=== PATIENT | male | born 1950 | race Caucasian/White ===

== ENCOUNTER 2018-05-29 11:46 | Inpatient (IN) | payer MEDICARE ==
[2018-05-29 12:19] LABS: % BASOPHILS 1.5 % (0.0-2.0); % EOSINOPHILS 4.9 % (0.0-5.0); % LYMPHOCYTES 22.4 % (20.0-50.0); % MONOCYTES 6.5 % (2.0-10.0); % NEUTROPHILS 64.7 % (40.0-80.0); BASOPHILE ABSOLUTE 0.2 Th/cumm (0-0.2); EOSINOPHILE ABSOLUTE 0.5 Th/cmm (0.1-0.4); HEMATOCRIT 30.6 % (41.0-60); HEMOGLOBIN 10.1 gm/dL (12-16); LYMPHOCYTE ABSOLUTE 2.4 Th/cmm (1.5-3.0); MEAN CORPUSCULAR HEMOGLOBIN 28.7 pg (27.0-31.0); MEAN PLATELET VOLUME 7.3 fl; MONOCYTE ABSOLUTE 0.7 Th/cmm (0.3-1.0); NEUTROPHILE ABSOLUTE 6.8 Th/cmm (1.8-8.0); PLATELET COUNT 299 Th/cmm (150-400); RED BLOOD COUNT 3.51 Mil/cmm (3.80-5.80); RED CELL DISTRIBUTION WIDTH 16.3 % (11.5-20.0); WHITE BLOOD COUNT 10.6 Th/cmm (4.8-10.8)
[2018-05-29 12:31] LABS: ALB/GLOB RATIO 0.8 (1.0-1.8); ALBUMIN 3.1 gm/dL (4.2-5.5); ANION GAP 12.7 (7.0-16.0); BILIRUBIN,TOTAL 0.4 mg/dL (0.3-1.0); CALCIUM SERUM 8.9 mg/dL (8.6-10.3); CARBON DIOXIDE 23.9 mEq/L (21.0-31.0); CREATININE - SERUM 1.8 mg/dL (0.7-1.3); GFR AFRICAN-AMERICAN 48.9 ml/min (>90); GFR NON AFRICAN-AMERICAN 40.4 ml/min; MAGNESIUM 1.5 mg/dL (1.9-2.7); PHOSPHOROUS 2.4 mg/dL (2.5-5.0); POTASSIUM SERUM 3.6 mEq/L (3.5-5.1); TOTAL PROTEIN,SERUM 7.1 gm/dL (6.0-8.3)
[2018-05-29 13:57] LABS: AMPHETAMINE URINE NEGATIVE (NEGATIVE); BARBITURATES URINE NEGATIVE (NEGATIVE); BENZODIAZEPINES QUAL URINE NEGATIVE (NEGATIVE); CANNABINOID THC NEGATIVE (NEGATIVE); COCAINE METABOLITE QUAL URINE NEGATIVE (NEGATIVE); METHADONE URINE NEGATIVE (NEGATIVE); METHAMPHETAMINES QUAL URINE NEGATIVE (NEGATIVE); OPIATES (MORPHINE) QUAL. URINE NEGATIVE (NEGATIVE); PHENCYCLIDINE (PCP) URINE NEGATIVE (NEGATIVE); TRICYCLICS (TCA) QUAL. URINE NEGATIVE (NEGATIVE)
[2018-05-29 13:59] LABS: URINE SOURCE CLEAN C
[2018-05-29 14:01] LABS: URINE BILIRUBIN NEGATIVE (NEGATIVE); URINE BLOOD LARGE (NEGATIVE); URINE GLUCOSE (UA) 500 mg/dL (NEGATIVE); URINE KETONE TRACE mg/dL (NEGATIVE); URINE LEUKOCYTE ESTERASE NEGATIVE (NEGATIVE); URINE MICROSCOPIC INDICATED? YES; URINE NITRATE NEGATIVE (NEGATIVE); URINE PH 6.5 (4.6 - 8.0); URINE PROTEIN >=300 mg/dL (NEGATIVE); URINE UROBILINOGEN 0.2 E.U./dL (0.2 - 1.0)
[2018-05-29 14:13] LABS: URINE CLARITY HAZY (CLEAR); URINE COLOR YELLOW
[2018-05-29 14:17] LABS: URINE BACTERIA 1+ /hpf (NONE SEEN); URINE COARSE GRANULAR CAST 0-2 /lpf (NONE SEEN); URINE EPITHELIAL CELLS FEW /lpf (FEW)
[2018-05-29 15:08] LABS: INR 1.08 (0.5-1.4); PROTHROMBIN TIME (TEST) 11.2 SECONDS (9.5-11.5)
--- NOTE | 2018-05-29 16:19 | ED Physician Chart ---
ED Chief Complaint/HPI - Patient Information Date Seen:: 05/29/18 Time Seen:: 12:01 Chief Complaint:: 5150, agitation History of Present Illness:: 5150, agitation. Patient was placed on 5150 by the center he came from for danger to others. 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 I obtained medical records from [facility] which did not indicate that he had had any brain imaging performed for staging purposes prior to Whipple. Therefore, I ordered a brain CT scan to rule out mets. Also, patient has hematuria (kidneys are in the retroperitoneum) and not in the zone of a Whipple. Therefore, I ordered an abdominal/pelvic CT scan. Both of these scans had to be performed without contrast due to his elevated creatinine of 1.8 and GFR of 40. geothermal field technician called and asked the radiologist precision farming specialist about this. Allergies:: Allergies Allergy/AdvReac Type Severity Reaction Status Date / Time No Known Allergies Allergy Verified 05/29/18 12:01 Vitals:: Vital Signs - 8 hr 05/29/18 12:01 Temp 98.5 F HR 83 RR 16 BP 165/81 O2 Sat % 100 Historian:: Patient, Family Member Review:: Nurse's Note Reviewed, Transfer documents Reviewed ED Review of Systems - Review of Systems General/Constitutional: No fever, No chills, Weight loss, No weakness, No diaphoresis, No edema, No loss of appetite Skin: No skin lesions, No rash, No bruising Head: No headache, No light-headedness Eyes: No loss of vision, No pain, No diplopia ENT: No earache, No nasal drainage, No sore throat, No tinnitus Neck: No neck pain, No swelling, No thyromegaly, No stiffness, No mass noted Cardio Vascular: No chest pain, No palpitations, No PND, No orthopnea, No edema Pulmonary: No SOB, No cough, No sputum, No wheezing GI: No nausea, No vomiting, No diarrhea, No pain, No melena, No hematochezia, No constipation, No hematemesis G/U: No dysuria, No frequency, No hematuria Musculoskeletal: No bone or joint pain, No back pain, No muscle pain Endocrine: No polyuria, No polydipsia Psychiatric: Other (increased agitation; danger to others: placed on a 5150) Hematopoietic: No bruising, No lymphadenopathy Allergic/Immuno: No urticaria, No angioedema Neurological: No syncope, No focal symptoms, No weakness, No paresthesia, No headache, No seizure, No dizziness, No confusion, No vertigo ED Past Medical History - Past Medical History Obtainable: No Past Medical History: Other (pancreatic cancer s/p Whipple in 04/2018. ) Social History: Other (h/o methamphetamine use) Family Medical History - Family Member Mother History Unknown: Yes ED Physical Exam - Physical Examination General/Constitutional: Awake, Alert, No distress, Non-toxic appearing, Ambulatory Other Gen/Cons comments:: skin folds from great weight loss. pale appearing. Head: Atraumatic Eyes: Lids, conjuctiva normal, PERRL, EOMI Skin: Nl inspection, No rash, No skin lesions, No ecchymosis, Well hydrated, No lymphadenopathy Other Skin comments:: pale ENMT: External ears, nose nl Neck: Nontender, No nuchal rigidity, No stridor Respiratory: Nl effort/Exclusion, Clear to Auscultation, No Wheeze/Rhonchi/Rales Cardio Vascular: RRR, No murmur, gallop, rubs, NL S1 S2 GI: No tenderness/rebounding/guarding, No organomegaly, No hernia, Normal BS's, Nondistended, No mass/bruits Other GI comments:: steri strips in place. Chevron incision well healed. : No CVA tenderness Extremities: No tenderness or effusion, Full ROM, normal strength in all extremities, No edema, Normal digits & nails Neuro/Psych: Alert/oriented, Normal sensory exam, Normal motor strength, Judgement/insight normal, Mood normal, Normal gait, No focal deficits Misc: Normal back, No paraspinal tenderness ED Labs/Radiology/EKG Results - Lab Results Results: Laboratory Tests 05/29/18 05/29/18 05/29/18 12:08 12:08 12:08 WBC 10.6 RBC 3.51 L Hgb 10.1 L Hct 30.6 L MCV 87.0 MCH 28.7 MCHC Differential 33.0 RDW 16.3 Plt Count 299 MPV 7.3 Neutrophils % 64.7 Lymphocytes % 22.4 Monocytes % 6.5 Eosinophils % 4.9 Basophils % 1.5 ESR PT INR PTT (Actin FS) Sodium 134 L Potassium 3.6 Chloride 101 Carbon Dioxide 23.9 Anion Gap 12.7 BUN 23 Creatinine 1.8 H Est GFR ( Amer) 48.9 Est GFR (Non-Af Amer) 40.4 BUN/Creatinine Ratio 12.8 Glucose 210 H POC Glucose Calcium 8.9 Phosphorus 2.4 L Magnesium 1.5 L Total Bilirubin 0.4 AST 15 ALT 10 Alkaline Phosphatase 158 H Total Protein 7.1 Albumin 3.1 L Globulin 4.0 Albumin/Globulin Ratio 0.8 L Amylase 79 Lipase 39 TSH 3.21 Urine Source Urine Color Urine Clarity Urine pH Ur Specific [place] Urine Protein Urine Glucose (UA) Urine Ketones Urine Blood Urine Nitrate Urine Bilirubin Urine Urobilinogen Ur Leukocyte Esterase Urine RBC Urine WBC Ur Epithelial Cells Urine Bacteria Coarse Granular Casts Urine Opiates Screen Urine Methadone Screen Ur Barbiturates Screen Ur Tricyclics Screen Ur Phencyclidine Scrn Amphetamines Screen U Methamphetamines Scrn U Benzodiazepines Scrn U Cocaine Metab Screen U Cannabinoids Screen 05/29/18 05/29/18 05/29/18 12:08 12:09 13:10 WBC RBC Hgb Hct MCV MCH MCHC Differential RDW Plt Count MPV Neutrophils % Lymphocytes % Monocytes % Eosinophils % Basophils % ESR 86 H PT INR PTT (Actin FS) Sodium Potassium Chloride Carbon Dioxide Anion Gap BUN Creatinine Est GFR ( Amer) Est GFR (Non-Af Amer) BUN/Creatinine Ratio Glucose POC Glucose 206 H Calcium Phosphorus Magnesium Total Bilirubin AST ALT Alkaline Phosphatase Total Protein Albumin Globulin Albumin/Globulin Ratio Amylase Lipase TSH Urine Source CLEAN C Urine Color YELLOW Urine Clarity HAZY Urine pH 6.5 Ur Specific [place] 1.025 Urine Protein >=300 Urine Glucose (UA) 500 H Urine Ketones TRACE Urine Blood LARGE H Urine Nitrate NEGATIVE Urine Bilirubin NEGATIVE Urine Urobilinogen 0.2 Ur Leukocyte Esterase NEGATIVE Urine RBC 10-25 H Urine WBC 2-5 Ur Epithelial Cells FEW Urine Bacteria 1+ H Coarse Granular Casts 0-2 H Urine Opiates Screen Urine Methadone Screen Ur Barbiturates Screen Ur Tricyclics Screen Ur Phencyclidine Scrn Amphetamines Screen U Methamphetamines Scrn U Benzodiazepines Scrn U Cocaine Metab Screen U Cannabinoids Screen 12/07/18 12/07/18 12/07/18 13:10 13:58 14:50 WBC RBC Hgb Hct MCV MCH MCHC Differential RDW Plt Count MPV Neutrophils % Lymphocytes % Monocytes % Eosinophils % Basophils % ESR PT 11.2 INR 1.08 PTT (Actin FS) 25.7 L Sodium Potassium Chloride Carbon Dioxide Anion Gap BUN Creatinine Est GFR ( Amer) Est GFR (Non-Af Amer) BUN/Creatinine Ratio Glucose POC Glucose 194 H Calcium Phosphorus Magnesium Total Bilirubin AST ALT Alkaline Phosphatase Total Protein Albumin Globulin Albumin/Globulin Ratio Amylase Lipase TSH Urine Source Urine Color Urine Clarity Urine pH Ur Specific Collison Urine Protein Urine Glucose (UA) Urine Ketones Urine Blood Urine Nitrate Urine Bilirubin Urine Urobilinogen Ur Leukocyte Esterase Urine RBC Urine WBC Ur Epithelial Cells Urine Bacteria Coarse Granular Casts Urine Opiates Screen NEGATIVE Urine Methadone Screen NEGATIVE Ur Barbiturates Screen NEGATIVE Ur Tricyclics Screen NEGATIVE Ur Phencyclidine Scrn NEGATIVE Amphetamines Screen NEGATIVE U Methamphetamines Scrn NEGATIVE U Benzodiazepines Scrn NEGATIVE U Cocaine Metab Screen NEGATIVE U Cannabinoids Screen NEGATIVE ED Assessment - Assessment General Assessment: still waiting for medical records from [facility] I obtained medical records from [facility] which did not indicate that he had had any brain imaging performed for staging purposes prior to Whipple. Therefore, I ordered a brain CT scan to rule out mets. Also, patient has hematuria (kidneys are in the retroperitoneum) and not in the zone of a Whipple. Therefore, I ordered an abdominal/pelvic CT scan. Both of these scans had to be performed without contrast due to his elevated creatinine of 1.8 and GFR of 40. geothermal field technician called and asked the radiologist precision farming specialist about this. Full set of medical records from [facility] given to patient. presented case to Dr. Berkowitz (who is the medical record technician for Geropsych admit ). CT scan of brain without contrast: no mets or edema from mets noted. CT scan of abdomen/pelvis: fullness in pancreatic head; dilation of common bile duct and pancreatic ducts. ED Septic Shock - . Is Septic Shock (SBP<90, OR Lactate>4 mmol\L) present?: No - <6hrs of presentation: Vital Signs: Vital Signs - 8 hr 05/29/18 12:01 Temp 98.5 F HR 83 RR 16 BP 165/81 O2 Sat % 100 ED Reassessment (Disposition) - Reassessment Reassessment Condition:: Unchanged - Diagnosis Diagnosis:: Increased agitation, on 5150 metastatic pancreatic cancer (unknown if brain mets are present) anemia weight loss hematuria low phosphorous low magnesium - Patient Disposition Discharge/Transfer:: Acute Care w/in this hosp Admitted to:: Med/Surg Condition at Disposition:: Stable, Unchanged
[2018-05-29] MEDS ORDERED: Lactated Ringer 1,000 ML IV ONE (17:27)
[2018-05-29] MEDS ORDERED: Non-Formulary Item 1 EA (Ondansetron Hcl [Zofran*] 4 MG) PO PRN (22:24)
[2018-05-29] MEDS ORDERED: Ipratropium Neb 0.5 mg/2.5 mL UD HHN PRN (22:24)
[2018-05-29] MEDS ORDERED: Non-Formulary Item 1 EA (Acetaminophen [8 Hour] 650 MG) PO PRN (22:24)
[2018-05-29] MEDS ORDERED: Fleet Enema 135 mL RC PRN (22:24)
[2018-05-29] MEDS ORDERED: Non-Formulary Item 1 EA (Glucagon,Human Recombinant [Glucagon Emergency Kit] 1 MG) IJ PRN (22:24)
[2018-05-29] MEDS ORDERED: Magnesium Hydroxide (MOM) 30 mL UDC PO PRN (22:24)
[2018-05-29] MEDS ORDERED: Albuterol Nebulizer 2.5mg/3mL HHN PRN (22:24)
[2018-05-29] MEDS ORDERED: Mag Sulfate 2gm/50mL Premix 2 GM/50 ML BAG IV ONE (22:30)
[2018-05-29] MEDS ORDERED: Potassium Phosphate 30 MMOLE in Sodium Chloride 0.9% 250 ML IV ONE (22:33)
[2018-05-29] MEDS: Sodium Chloride 0.9% 1,000 ML IV SCH (23:31)
[2018-05-29] MEDS: INSULIN ASPART, RECOMBINANT 100 UNITS/ML SUBQ SCH (23:44)
[2018-05-30 04:31] VITALS: BP 147/85
[2018-05-30] MEDS ORDERED: GLUCAGON HCl 1 MG KIT IM PRN (05:04)
[2018-05-30] MEDS ORDERED: Piperacillin Sodium/Tazobact 3.375 gm Vial IV ONE (05:13)
[2018-05-30 05:35] LABS: % BASOPHILS 1.3 % (0.0-2.0); % EOSINOPHILS 6.7 % (0.0-5.0); % LYMPHOCYTES 26.2 % (20.0-50.0); % MONOCYTES 9.4 % (2.0-10.0); % NEUTROPHILS 56.4 % (40.0-80.0); BASOPHILE ABSOLUTE 0.1 Th/cumm (0-0.2); EOSINOPHILE ABSOLUTE 0.6 Th/cmm (0.1-0.4); HEMATOCRIT 27.1 % (41.0-60); HEMOGLOBIN 8.9 gm/dL (12-16); LYMPHOCYTE ABSOLUTE 2.4 Th/cmm (1.5-3.0); MEAN CELL VOLUME 86.9 fl (80-99); MEAN CORPUSCULAR HEMOGLOBIN 28.4 pg (27.0-31.0); MEAN CORPUSCULAR HGB CONC 32.7 pg (28.0-36.0); MEAN PLATELET VOLUME 7.2 fl; MONOCYTE ABSOLUTE 0.9 Th/cmm (0.3-1.0); NEUTROPHILE ABSOLUTE 5.3 Th/cmm (1.8-8.0); PLATELET COUNT 281 Th/cmm (150-400); RED BLOOD COUNT 3.12 Mil/cmm (3.80-5.80); RED CELL DISTRIBUTION WIDTH 16.1 % (11.5-20.0); WHITE BLOOD COUNT 9.3 Th/cmm (4.8-10.8)
[2018-05-30 05:59] LABS: ALB/GLOB RATIO 0.8 (1.0-1.8); ALBUMIN 2.6 gm/dL (4.2-5.5); ANION GAP 9.7 (7.0-16.0); BILIRUBIN,TOTAL 0.3 mg/dL (0.3-1.0); CALCIUM SERUM 8.5 mg/dL (8.6-10.3); CARBON DIOXIDE 25.7 mEq/L (21.0-31.0); CREATININE - SERUM 1.7 mg/dL (0.7-1.3); GFR AFRICAN-AMERICAN 52.3 ml/min (>90); GFR NON AFRICAN-AMERICAN 43.2 ml/min; MAGNESIUM 1.8 mg/dL (1.9-2.7); PHOSPHOROUS 3.3 mg/dL (2.5-5.0); POTASSIUM SERUM 3.4 mEq/L (3.5-5.1); TOTAL PROTEIN,SERUM 5.8 gm/dL (6.0-8.3)
[2018-05-30] MEDS: INSULIN ASPART, RECOMBINANT 100 UNITS/ML SUBQ SCH ×4 (06:57→21:03)
[2018-05-30] MEDS: Pantoprazole 40 mg EC Tab PO SCH (06:57)
[2018-05-30] MEDS ORDERED: INSULIN ASPART, RECOMBINANT 100 UNITS/ML SUBQ SCH ×2 (07:30)
[2018-05-30] MEDS: POLYETHYLENE GLYCOL 3350 17 GM PACK PO SCH ×2 (08:47→08:59)
[2018-05-30] MEDS: Multivitamin Tab PO SCH (08:50)
[2018-05-30] MEDS ORDERED: PROTEIN SUPPLEMENT PO SCH (09:00)
[2018-05-30] MEDS ORDERED: Non-Formulary Item 1 EA (Arginine/Ascorbate Sod/Vite Ac [Arginaid Powder] 1 EACH) PO SCH (09:00)
[2018-05-30] MEDS ORDERED: Non-Formulary Item 1 EA (Multivitamin With Minerals [Myvitalife] 1 EACH) PO SCH (09:00)
--- NOTE | 2018-05-30 09:45 | Diagnostic Imaging Report ---
CT scan of the brain without intravenous contrast HISTORY: Metastatic disease Total DLP equals 711 CTDI equals 37.8 Axial sections were obtained from the base of the skull to the vertex. The study is limited without administration of contrast material. There is prominence/enlargement of the ventricular system size. Associated enlargement of cerebral sulci and subarachnoid cisterns. Findings are consistent with changes of generalized cerebral atrophy. No acute parenchymal abnormalities. No acute cerebral hemorrhage. Hypodensity is seen within the supratentorial white matter regions without mass effect. The findings may be associated with chronic small vessel ischemic disease. No extra-axial masses or abnormal fluid collections. IMPRESSION: 1. No acute abnormalities 2. Cerebral atrophy 3. Supratentorial white matter changes that may reflect chronic small vessel ischemic disease
--- NOTE | 2018-05-30 09:49 | Diagnostic Imaging Report ---
Exam: CT examination of the pelvis. HISTORY: Hematuria. Total DLP equals 455 CTDI equals 8.9 Prior exam: None Findings: Multiple contiguous thin section of the abdomen pelvis obtained from lower thorax to pubic symphysis without administration of contrast material the study therefore is limited. No prior studies available comparison. The study demonstrates a normal aeration of lung parenchyma the bases. There is evidence for ill-defined nodularity in the right mid lower chest peripherally measuring 1.1 cm diameter. Clinical correlation recommended The liver parenchyma spleen are normal. The stomach distended with content. There is evidence of previous cholecystectomy. The visualized pancreas demonstrates prominence of pancreatic duct. Ill-defined area in the decidual pancreatic head might represent the neoplasm or sequela of the previous Whipple procedure. Multiple metallic clips are noted in the area. Clinical correlation examination with contrast material is recommended. Postsurgical changes are noted in the colon. The kidneys demonstrate no evidence of obstructive uropathy or nephrolithiasis. There is evidence for edema in lower anterior abdomen. There is no evidence of diverticulitis. Mild diverticulosis of sigmoid colon appreciated. Urinary bladder demonstrates thickening of the bladder wall. Prostate gland is enlarged. IMPRESSION: Status post cholecystectomy, mesenteric edema Fullness of the pancreatic head neoplastic component cannot be excluded clinical correlation and CT examination with contrast material is recommended Distention of common bile duct and pancreatic ducts Arterial vascular disease. Diverticulosis, no evidence of diverticulitis Urinary bladder wall thickening bony structures demonstrate no evidence for lytic or blastic changes.
[2018-05-30] MEDS ORDERED: Potassium Chloride 20 mEq ER Tab PO ONE (14:51)
[2018-05-30] MEDS: Sodium Chloride 0.9% 1,000 ML IV SCH (15:19)
--- NOTE | 2018-05-30 16:16 | History & Physical ---
ADMIT DATE: 05/29/2018 INTERNAL MEDICINE HISTORY AND PHYSICAL CHIEF COMPLAINT: Agitated. HISTORY OF PRESENT ILLNESS: This is a 67-year-old male with a history of diabetes, recent diagnosis of cholangiocarcinoma status post Whipple procedure done at [facility] in late April and discharged to [facility]. The patient apparently was agitated, threatening, and play some activity. The patient was admitted to geropsychiatric unit. The patient is on IV antibiotic for bacterial ____ endocarditis. PAST MEDICAL HISTORY: As mentioned in history of present illness. PAST SURGICAL HISTORY: Status post Whipple procedure. ALLERGIES: No known drug allergies. MEDICATIONS: The patient is on Maxipime, [place], MiraLax, Colace, Tylenol, heparin, ____, vitamin C, Cardura, Benadryl, glucagon, insulin sliding scale, ____, metoprolol, multivitamin, Zofran, pantoprazole. FAMILY HISTORY: Noncontributory. SOCIAL HISTORY: The patient is a nonsmoker and nondrinker. 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 REVIEW OF SYSTEMS: GENERAL: Complains of not feeling well. HEENT: No blurred vision or eye pain. LUNGS: No diagnosis of COPD or asthma. HEART: The patient with hypertension and coronary artery disease. ABDOMEN: The patient with abdominal discomfort. He has been having loose stools secondary to being on a lot of laxatives. GENITOURINARY: The patient denies increased frequency or dysuria. NEUROLOGIC: No headache or seizures. PSYCHIATRIC: As stated above. PHYSICAL EXAMINATION: VITAL SIGNS: Blood pressure 149/73, previous to that it was elevated at 185/93, respirations 19, pulse was high as well 147, temperature 98.2. GENERAL: A middle-aged male, in no acute distress. NECK: Supple. No mass. LUNGS: Equal breath sounds, a few rhonchi. HEART: Regular rate and rhythm without appreciable murmur. ABDOMEN: Soft, globular. Positive surgical scar in the mid abdomen. EXTREMITIES: Positive excoriations in bilateral lower extremities. NEUROLOGIC: Limited, moving 4 extremities. LABORATORY DATA: WBC 9, hemoglobin 8.9, platelets 281. Sodium 133, potassium 3.4, BUN 23, creatinine 1.8, blood sugar 202 ____, which was replaced. Albumin is low at 2.6. UA, ____ rbc, 1+ bacteria. ASSESSMENT AND PLAN: Increasing agitation, cholangiocarcinoma, sepsis/bacteremia with questionable endocarditis, status post Whipple procedure, diabetes, hypokalemia, hypomagnesemia, coronary artery disease, protein-calorie malnutrition. Continue the patient on IV antibiotics. Continue to replace the patient's electrolytes. Continue psychiatric evaluation with the patient and the patient's psychiatric condition on 5150. I had a long discussion with the patient as well as the niece who is at the bedside. We will continue to monitor the patient closely. JOB# [id number]
--- NOTE | 2018-05-31 01:37 | Consultation ---
DATE OF CONSULTATION: 05/30/2018 IDENTIFYING INFORMATION The patient is a 67-year-old male. CHIEF COMPLAINT: "I have no problem." HISTORY OF PRESENT ILLNESS: The patient was admitted on a hold for danger to others, grave disability. The patient apparently was put on a hold. He was in a nursing facility, has been labile, having severe mood swings. The patient was verbally threatening to others, threatening to physically harm his roommate at the prison and the staff was unable to care for the patient at this time because of severity of his agitation. However, when I talked to the patient, he denies all the above. He actually was smiling. He was pleasant, cooperative. He actually does not know why he is here, neither the staff and when I reviewed the notes from the ER physician that could not tell me anything. The patient reports that he is not depressed, that he sleeps well. He eats well. He denies that he wants to harm himself or anybody. He said that he lives close to [place]. Denies any auditory or visual hallucination or paranoia. Unable to explain why he is here. Denies all the allegations. PAST PSYCHIATRIC HISTORY: Denies prior psychiatric treatment. Denies prior intent to harm himself. The patient was seen by ____ who put him on a hold. Apparently, he lives in [facility] [place]; however. The patient claims that he lives close to [place], so he was not a very good historian. MEDICAL HISTORY: As per medical doctor. The patient has a history of hypertension, GERD. He is diabetic. FAMILY AND SOCIAL HISTORY: The patient reports that he has 13 years of education. 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 He is on disability because of diabetes mellitus that affected his ankle, cannot walk appropriately. He denies any family psychotic disorder. He reported that he was for a while, he has 2 children. Denies family psychotic disorder. MENTAL STATUS EXAMINATION: The patient is appropriately dressed, not well groomed. He was alert. He was able to tell me the date. He is not sure why he is here. He reports he has not depressed, that he is sleeping well. He eats well. He denies any auditory or visual hallucination or paranoia; however, apparently was witnessed, being labile, irritable, and aggressive. He denies any auditory hallucination, visual hallucination or paranoia. He was smiling most of the time while I was talking to him, denying that he was trying to harm himself or anybody. He was able to tell me his age and he knows the President of [facility]. His termite helper memory is good. Short term memory is poor, unable to tell me why he is here. Insight and judgment is questionable. IMPRESSION: AXIS I: Psychosis, versus bipolar disorder, not otherwise specified. PLAN: I would recommend to initiate a small dose of Seroquel. The patient needs follow up with the psychiatrist upon discharge. Thank you very much for allowing me to participate in the care of this most interesting gentleman. JOB# [id number]
[2018-05-31] MEDS: Sodium Chloride 0.9% 1,000 ML IV SCH (04:21)
[2018-05-31 06:47] LABS: % BASOPHILS 1.1 % (0.0-2.0); % EOSINOPHILS 7.3 % (0.0-5.0); % LYMPHOCYTES 23.1 % (20.0-50.0); % MONOCYTES 8.2 % (2.0-10.0); % NEUTROPHILS 60.3 % (40.0-80.0); BASOPHILE ABSOLUTE 0.1 Th/cumm (0-0.2); EOSINOPHILE ABSOLUTE 0.7 Th/cmm (0.1-0.4); HEMOGLOBIN 9.8 gm/dL (12-16); LYMPHOCYTE ABSOLUTE 2.1 Th/cmm (1.5-3.0); MEAN CORPUSCULAR HEMOGLOBIN 28.9 pg (27.0-31.0); MEAN CORPUSCULAR HGB CONC 32.9 pg (28.0-36.0); MEAN PLATELET VOLUME 7.4 fl; MONOCYTE ABSOLUTE 0.7 Th/cmm (0.3-1.0); NEUTROPHILE ABSOLUTE 5.5 Th/cmm (1.8-8.0); PLATELET COUNT 241 Th/cmm (150-400); RED CELL DISTRIBUTION WIDTH 16.6 % (11.5-20.0); WHITE BLOOD COUNT 9.1 Th/cmm (4.8-10.8)
[2018-05-31] MEDS: Pantoprazole 40 mg EC Tab PO SCH (07:01)
[2018-05-31] MEDS: INSULIN ASPART, RECOMBINANT 100 UNITS/ML SUBQ SCH ×4 (07:05→20:59)
[2018-05-31 07:10] LABS: ANION GAP 12.3 (7.0-16.0); CALCIUM SERUM 8.3 mg/dL (8.6-10.3); CARBON DIOXIDE 22.5 mEq/L (21.0-31.0); CREATININE - SERUM 1.9 mg/dL (0.7-1.3); MAGNESIUM 1.6 mg/dL (1.9-2.7); POTASSIUM SERUM 3.8 mEq/L (3.5-5.1)
[2018-05-31] MEDS: Multivitamin Tab PO SCH (08:50)
[2018-05-31] MEDS ORDERED: Mag Sulfate 2gm/50mL Premix 2 GM/50 ML BAG IV ONE (11:35)
--- NOTE | 2018-05-31 11:38 | Internal Medicine Prog Note ---
Internal Medicine Subjective - Subjective Patient seen and examined:: with staff, chart reviewed Patient is:: awake, verbal, interactive, in bed, denies any new complaints Patient Complaints of:: bloated, unable to sleep Per staff patient has:: no adverse event, no episodes of fall, eating well, tolerating meds Internal Medicine Objective - Results Result Diagrams: 05/31/18 05:58 05/31/18 05:58 Recent Labs: Laboratory Last Values WBC 9.1 Th/cmm (4.8-10.8) 05/31/18 05:58 RBC 3.40 Mil/cmm (3.80-5.80) L 05/31/18 05:58 Hgb 9.8 gm/dL (12-16) L 05/31/18 05:58 Hct 30.0 % (41.0-60) L 05/31/18 05:58 MCV 88.0 fl (80-99) 05/31/18 05:58 MCH 28.9 pg (27.0-31.0) 05/31/18 05:58 MCHC Differential 32.9 pg (28.0-36.0) 05/31/18 05:58 RDW 16.6 % (11.5-20.0) 05/31/18 05:58 Plt Count 241 Th/cmm (150-400) 05/31/18 05:58 MPV 7.4 fl 05/31/18 05:58 Neutrophils % 60.3 % (40.0-80.0) 05/31/18 05:58 Lymphocytes % 23.1 % (20.0-50.0) 05/31/18 05:58 Monocytes % 8.2 % (2.0-10.0) 05/31/18 05:58 Eosinophils % 7.3 % (0.0-5.0) H 05/31/18 05:58 Basophils % 1.1 % (0.0-2.0) 05/31/18 05:58 ESR 86 mm/hr (0-20) H 05/29/18 12:08 PT 11.2 SECONDS (9.5-11.5) 05/29/18 14:50 INR 1.08 (0.5-1.4) 05/29/18 14:50 PTT (Actin FS) 25.7 SECONDS (26.0-38.0) L 05/29/18 14:50 Sodium 138 mEq/L (136-145) 05/31/18 05:58 Potassium 3.8 mEq/L (3.5-5.1) 05/31/18 05:58 Chloride 107 mEq/L (98-107) 05/31/18 05:58 Carbon Dioxide 22.5 mEq/L (21.0-31.0) 05/31/18 05:58 Anion Gap 12.3 (7.0-16.0) 05/31/18 05:58 BUN 19 mg/dL (7-25) 05/31/18 05:58 Creatinine 1.9 mg/dL (0.7-1.3) H 05/31/18 05:58 Est GFR ( Amer) 46.0 ml/min (>90) 05/31/18 05:58 Est GFR (Non-Af Amer) 38.0 ml/min 05/31/18 05:58 BUN/Creatinine Ratio 10.0 05/31/18 05:58 Glucose 203 mg/dL (70-105) H 05/31/18 05:58 POC Glucose 173 MG/DL (70 - 105) H 05/31/18 07:04 Calcium 8.3 mg/dL (8.6-10.3) L 05/31/18 05:58 Phosphorus 3.3 mg/dL (2.5-5.0) 05/30/18 05:07 Magnesium 1.6 mg/dL (1.9-2.7) L 05/31/18 05:58 Total Bilirubin 0.3 mg/dL (0.3-1.0) 05/30/18 05:07 AST 12 U/L (13-39) L 05/30/18 05:07 ALT 8 U/L (7-52) 05/30/18 05:07 Alkaline Phosphatase 130 U/L (34-104) H 05/30/18 05:07 Ammonia 36 umol/L (16-53) 05/30/18 05:07 B-Natriuretic Peptide 115.0 pg/mL (5.0-100.0) H 05/31/18 05:58 Total Protein 5.8 gm/dL (6.0-8.3) L 05/30/18 05:07 Albumin 2.6 gm/dL (4.2-5.5) L 05/30/18 05:07 Globulin 3.2 gm/dL 05/30/18 05:07 Albumin/Globulin Ratio 0.8 (1.0-1.8) L 05/30/18 05:07 Amylase 79 U/L (29-103) 05/29/18 12:08 Lipase 39 U/L (11-82) 05/29/18 12:08 TSH 3.21 uIU/ml (0.34-5.60) 05/29/18 12:08 Urine Source CLEAN C 05/29/18 13:10 Urine Color YELLOW 05/29/18 13:10 Urine Clarity HAZY (CLEAR) 05/29/18 13:10 Urine pH 6.5 (4.6 - 8.0) 05/29/18 13:10 Ur Specific [place] 1.025 (1.005-1.030) 05/29/18 13:10 Urine Protein >=300 mg/dL (NEGATIVE) 05/29/18 13:10 Urine Glucose (UA) 500 mg/dL (NEGATIVE) H 05/29/18 13:10 Urine Ketones TRACE mg/dL (NEGATIVE) 05/29/18 13:10 Urine Blood LARGE (NEGATIVE) H 05/29/18 13:10 Urine Nitrate NEGATIVE (NEGATIVE) 05/29/18 13:10 Urine Bilirubin NEGATIVE (NEGATIVE) 05/29/18 13:10 Urine Urobilinogen 0.2 E.U./dL (0.2 - 1.0) 05/29/18 13:10 Ur Leukocyte Esterase NEGATIVE (NEGATIVE) 05/29/18 13:10 Urine RBC 10-25 /hpf (0-5) H 05/29/18 13:10 Urine WBC 2-5 /hpf (0-5) 05/29/18 13:10 Ur Epithelial Cells FEW /lpf (FEW) 05/29/18 13:10 Urine Bacteria 1+ /hpf (NONE SEEN) H 05/29/18 13:10 Coarse Granular Casts 0-2 /lpf (NONE SEEN) H 05/29/18 13:10 Urine Opiates Screen NEGATIVE (NEGATIVE) 05/29/18 13:10 Urine Methadone Screen NEGATIVE (NEGATIVE) 05/29/18 13:10 Ur Barbiturates Screen NEGATIVE (NEGATIVE) 05/29/18 13:10 Ur Tricyclics Screen NEGATIVE (NEGATIVE) 05/29/18 13:10 Ur Phencyclidine Scrn NEGATIVE (NEGATIVE) 05/29/18 13:10 Amphetamines Screen NEGATIVE (NEGATIVE) 05/29/18 13:10 U Methamphetamines Scrn NEGATIVE (NEGATIVE) 05/29/18 13:10 U Benzodiazepines Scrn NEGATIVE (NEGATIVE) 05/29/18 13:10 U Cocaine Metab Screen NEGATIVE (NEGATIVE) 05/29/18 13:10 U Cannabinoids Screen NEGATIVE (NEGATIVE) 05/29/18 13:10 - Physical Exam Vitals and I&O: Vital Signs Temp 98.1 F 05/31/18 06:00 Pulse 68 05/31/18 08:50 Resp 16 05/31/18 10:53 BP 134/69 05/31/18 08:50 Pulse Ox 98 05/31/18 07:47 Intake & Output 05/30/18 05/31/18 05/31/18 18:59 06:59 18:59 Intake Total 448 1100 Balance 448 1100 Intake: Intake, IV Amount 448 1100 Piperacillin Sodium/ 100 Tazobact 3.375 gm In Dextrose 5% 50 ml @ 100 mls/hr IV Q8HR [facility] Rx#: [id number] Sodium Chloride 0.9% 1, 448 1000 000 ml @ 80 mls/hr IV . [id number] [facility] Rx#:[id number] Active Medications: Current Medications Acetaminophen (Tylenol) 650 mg PO Q4H PRN PRN Reason: TEMP >100.4 OR MILD PAIN Stop: 07/28/18 23:55 Albuterol Sulfate (Albuterol 2.5mg/3ml Neb Ud) 2.5 mg HHN Q6H PRN PRN Reason: Shortness of Breath Stop: 07/28/18 22:23 Amlodipine Besylate (Norvasc) 10 mg PO DAILY [facility] Stop: 07/29/18 08:59 Last Admin: 05/31/18 08:50 Dose: 10 mg Ascorbic Acid (Vitamin C) 500 mg PO DAILY [facility] Stop: 07/29/18 08:59 Last Admin: 05/31/18 08:49 Dose: 500 mg Benzocaine/Menthol (Cepacol) 1 gabriella MM Q2H PRN PRN Reason: Sore Throat Stop: 07/28/18 22:23 Bisacodyl (Dulcolax 10 Mg Supp) 10 mg RC DAILY PRN PRN Reason: IF MOM INEFFECTIVE Stop: 07/28/18 22:23 Diphenhydramine HCl (Benadryl) 25 mg PO Q6H PRN PRN Reason: Itching Stop: 07/28/18 22:23 Docusate Sodium (Colace) 100 mg PO BID [facility] Stop: 07/29/18 08:59 Last Admin: 05/31/18 08:50 Dose: 100 mg Doxazosin Mesylate (Cardura) 2 mg PO HS [facility] Stop: 07/29/18 20:59 Last Admin: 05/30/18 20:49 Dose: 2 mg Glucagon (Glucagen) 1 mg IM PRN PRN PRN Reason: BS < 70 Stop: 07/29/18 05:03 Hydrocortisone (Hydrocortisone 1%) 1 appl TP BID PRN PRN Reason: Itching Stop: 07/28/18 22:23 Sodium Chloride (Nacl 0.9%) 1,000 mls @ 80 mls/hr IV .[id number] [facility] Stop: 07/28/18 22:29 Last Admin: 05/31/18 04:21 Dose: 80 mls/hr Cefepime HCl 1 gm/ Dextrose 50 mls @ 100 mls/hr IV Q12H [facility] Stop: 07/30/18 11:44 Magnesium Sulfate (Magnesium Sulfate Premix) 2 gm in 50 mls @ 25 mls/hr IV X1 ONE Stop: 05/31/18 13:34 Insulin Aspart (Novolog) 0 units SUBQ ACHS [facility]; Protocol Stop: 07/28/18 23:07 Last Admin: 05/31/18 07:05 Dose: Not Given Ipratropium [place] (Atrovent Neb 0.5mg/2.5ml) 0.5 mg HHN Q6HRT PRN PRN Reason: SOB/WHEEZING Stop: 07/28/18 22:23 Magnesium Hydroxide (Milk Of Magnesia) 30 ml PO DAILY PRN PRN Reason: IF NO BM IN TWO DAYS Stop: 07/28/18 22:23 Metoprolol Tartrate (Lopressor) 12.5 mg PO TID [facility] Stop: 07/29/18 08:59 Last Admin: 05/31/18 08:49 Dose: 12.5 mg Multivitamins/Vitamin C (Theragran) 1 tab PO DAILY [facility] Stop: 07/29/18 08:59 Last Admin: 05/31/18 08:50 Dose: 1 tab Ondansetron HCl (Zofran) 4 mg IV Q8H PRN PRN Reason: Nausea / Vomiting Stop: 07/28/18 22:29 Pantoprazole Sodium (Protonix) 40 mg PO QDAC [facility] Stop: 07/29/18 07:29 Last Admin: 05/31/18 07:01 Dose: 40 mg Quetiapine Fumarate (Seroquel) 25 mg PO HS [facility]; Protocol Stop: 07/29/18 20:59 Last Admin: 05/30/18 20:49 Dose: 25 mg Sodium Phosphate (Fleet Enema) 135 ml RC DAILY PRN PRN Reason: IF MOM/DULCOLAX INEFFECTIVE Stop: 07/28/18 22:23 Zinc Sulfate (Zinc Sulfate) 220 mg PO DAILY [facility] Stop: 07/29/18 08:59 Last Admin: 05/31/18 08:50 Dose: 220 mg General: alert HEENT: NC/AT, PERRLA, EOMI, poor dentition Neck: Supple, No JVD, No thyromegaly Lungs: CTAB Cardiovascular: RRR, Normal S1, Normal S2, without murmur Abdomen: soft, non-tender, globular, positive bowel sound Extremities: excoriation Neurological: no change, muscle weakness Internal Medicine Assmt/Plan - Assessment Assessment: ASSESSMENT AND PLAN: Increasing agitation, cholangiocarcinoma, sepsis/bacteremia with questionable endocarditis, status post Whipple procedure, diabetes, hypokalemia, hypomagnesemia, coronary artery disease, protein-calorie malnutrition. - Plan Plan: PLAN: Continue the patient on IV antibiotics. switch back to maxipime, Continue to replace the patient's electrolytes. Continue psychiatric evaluation with the patient and the patient's psychiatric condition on 5150. I had a long discussion with the patient as well as the niece who is at the bedside. We will continue to monitor the patient closely. Nutritional Asmnt/Malnutr-PDOC - Dietary Evaluation Malnutrition Findings (Please click <Entered> for more info): Nutritional Asmnt/Malnutrition Start: 05/30/18 14: 17 Text: Status: Complete Freq: Protocol: Document 05/30/18 14:17 DAVID (Rec: 05/30/18 14:31 DAVID MICHELLE- [email or web address]) Nutritional Asmnt/Malnutrition Patient General Information Nutritional Screening High Risk Diagnosis Increased agitation and mets Ca Pertinent Medical Hx/Surgical Hx renal complications, neuropathy, gait/mobility abnormality, muscle weakness, cholangiocarcinoma, bacteremia Subjective Information Patient with 1:1 sitter for 5150 status. Current Diet Order/ Nutrition Support 60 gm CCHO Patient / S.O Not Indicated Pertinent Medications Vitamin C, Dulcolax, Colace, glucagon, Novolog, MOM, Theragran, Zofran, protonix, Miralax, senna, fleet enema, zinc sulfate Pertinent Labs (05/30) K 3.4, Mg 1.8, Albumin 2.6, glucose 194-355 Nutritional Hx/Data Height 1.7 m Height (Calculated Centimeters) 170.2 Current Weight (lbs) 68.946 kg Weight (Calculated Kilograms) 68.9 Weight (Calculated Grams) 60632.0 [place] Body Weight 148 % [place] Body Weight 102 Body Mass Index (BMI) 23.8 Recent Weight Change No Weight Status Approriate GI Symptoms GI Symptoms None Last BM none noted in EMR Difficult in: None Food Allergies No Cultural/Ethnic/Advent Belief none indicated Usual diet at home Regular Skin Integrity/Comment: Rogerio 18, 1+ non-pitting edema, reddened right toe, ulceration right foot, scar right ankle, pressure area sacrum, incision abdomen Estimated Nutritional Goals BEE in Kcals: Using Current wt Calories/Kcals/Kg 30-35 kcal/kg using CBW 69kg - mets cancer, osteomyelitis Kcals Calculated ~3556-7647 kcal/day Protein: Using Current wt Protein g/k.2-1.5 gm/kg Protein Calculated ~80-100 gm/day Fluid: ml ~2618-3946 ml/day (1 ml/kcal) Nutritional Problem 2. Problem Problem Increased nutrient needs related to Etiology impaired skin integrity, Hypermetabolic state aeb Signs/Symptoms: skin ulcerations (per RN notes ), osteomyelitis, mets cancer 1. Problem Problem Altered nutrition related lab values related to Etiology electrolyte imbalance, uncontrolled hyperglycemia aeb Signs/Symptoms: K 3.4, Mg 1.8, Albumin 2.6, glucose 194-355 Intervention/Recommendation Comments 1. Continue 60 gm CCHO diet as tolerated by patient. 2. MD to modify insulin regimen for optimal glycemic control. 3. Encourage oral intake and provide assistance with meals as needed. 4. Provide Glucerna with each meal to supplement calorie and protein intake. 5. F/U in 3-5 days as MR 06/02 - Expected Outcomes/Goals Expected Outcomes/Goals Oral intake >75% of meals, weight stable, nutrition related labs/glucose normalize
--- NOTE | 2018-05-31 23:37 | Progress Notes ---
DATE: 05/31/2018 SUBJECTIVE: Case was discussed with staff of the patient, reviewed records. The staff reports the patient is acting fine. No acting out behavior, sleeping well, eating well. No suicidal ideation. No homicidal ideation. He believed that he was in a dream when this happened, fighting with a roommate. He says somebody waked up, so I am not sure exactly what happened. However, ____ apparently saw the patient, put him on a hold. The patient is sleeping well, eating well. No side effects with the medication, no sedation, no nausea, no extrapyramidal symptoms. I did initiate him on Seroquel and Dr. Stevens will follow up with him. Thank you very much for allowing me to participate in the care of this most interesting gentleman. JOB# [id number]
[2018-06-01 05:36] LABS: % BASOPHILS 1.7 % (0.0-2.0); % EOSINOPHILS 8.9 % (0.0-5.0); % LYMPHOCYTES 22.9 % (20.0-50.0); % MONOCYTES 8.4 % (2.0-10.0); % NEUTROPHILS 58.1 % (40.0-80.0); BASOPHILE ABSOLUTE 0.2 Th/cumm (0-0.2); EOSINOPHILE ABSOLUTE 0.8 Th/cmm (0.1-0.4); HEMATOCRIT 27.7 % (41.0-60); HEMOGLOBIN 9.4 gm/dL (12-16); LYMPHOCYTE ABSOLUTE 2.1 Th/cmm (1.5-3.0); MEAN CELL VOLUME 88.7 fl (80-99); MEAN CORPUSCULAR HEMOGLOBIN 29.9 pg (27.0-31.0); MEAN CORPUSCULAR HGB CONC 33.7 pg (28.0-36.0); MEAN PLATELET VOLUME 7.6 fl; MONOCYTE ABSOLUTE 0.8 Th/cmm (0.3-1.0); NEUTROPHILE ABSOLUTE 5.4 Th/cmm (1.8-8.0); PLATELET COUNT 232 Th/cmm (150-400); RED BLOOD COUNT 3.13 Mil/cmm (3.80-5.80); RED CELL DISTRIBUTION WIDTH 16.7 % (11.5-20.0); WHITE BLOOD COUNT 9.3 Th/cmm (4.8-10.8)
[2018-06-01] MEDS: Sodium Chloride 0.9% 1,000 ML IV SCH (06:04)
[2018-06-01] MEDS: INSULIN ASPART, RECOMBINANT 100 UNITS/ML SUBQ SCH ×3 (07:55→16:54)
[2018-06-01] MEDS: Multivitamin Tab PO SCH (09:05)
[2018-06-01] MEDS: Pantoprazole 40 mg EC Tab PO SCH (09:06)
[2018-06-01 09:19] LABS: ANION GAP 13.8 (7.0-16.0); CALCIUM SERUM 8.2 mg/dL (8.6-10.3); CARBON DIOXIDE 21.1 mEq/L (21.0-31.0); CREATININE - SERUM 1.8 mg/dL (0.7-1.3); GFR AFRICAN-AMERICAN 48.9 ml/min (>90); GFR NON AFRICAN-AMERICAN 40.4 ml/min; MAGNESIUM 1.9 mg/dL (1.9-2.7); POTASSIUM SERUM 3.9 mEq/L (3.5-5.1)
[2018-06-01] MEDS ORDERED: Probiotic Screen MC PRN (10:24)
[2018-06-01] MEDS ORDERED: Lactobacillus Rhamnosus GG 15 Billion CFU CAP.SPRINK PO SCH (14:00)
--- NOTE | 2018-06-01 15:45 | Internal Medicine Prog Note ---
Internal Medicine Subjective - Subjective Service Date: 06/01/18 Patient is:: awake, verbal, interactive, in bed, denies any new complaints Patient Complaints of:: bloated, unable to sleep Per staff patient has:: no adverse event, no episodes of fall, eating well, tolerating meds Internal Medicine Objective - Results Result Diagrams: 06/01/18 04:40 06/01/18 04:40 Recent Labs: Laboratory Last Values WBC 9.3 Th/cmm (4.8-10.8) 06/01/18 04:40 RBC 3.13 Mil/cmm (3.80-5.80) L 06/01/18 04:40 Hgb 9.4 gm/dL (12-16) L 06/01/18 04:40 Hct 27.7 % (41.0-60) L 06/01/18 04:40 MCV 88.7 fl (80-99) 06/01/18 04:40 MCH 29.9 pg (27.0-31.0) 06/01/18 04:40 MCHC Differential 33.7 pg (28.0-36.0) 06/01/18 04:40 RDW 16.7 % (11.5-20.0) 06/01/18 04:40 Plt Count 232 Th/cmm (150-400) 06/01/18 04:40 MPV 7.6 fl 06/01/18 04:40 Neutrophils % 58.1 % (40.0-80.0) 06/01/18 04:40 Lymphocytes % 22.9 % (20.0-50.0) 06/01/18 04:40 Monocytes % 8.4 % (2.0-10.0) 06/01/18 04:40 Eosinophils % 8.9 % (0.0-5.0) H 06/01/18 04:40 Basophils % 1.7 % (0.0-2.0) 06/01/18 04:40 ESR 86 mm/hr (0-20) H 05/29/18 12:08 PT 11.2 SECONDS (9.5-11.5) 05/29/18 14:50 INR 1.08 (0.5-1.4) 05/29/18 14:50 PTT (Actin FS) 25.7 SECONDS (26.0-38.0) L 05/29/18 14:50 Sodium 138 mEq/L (136-145) 06/01/18 04:40 Potassium 3.9 mEq/L (3.5-5.1) 06/01/18 04:40 Chloride 107 mEq/L (98-107) 06/01/18 04:40 Carbon Dioxide 21.1 mEq/L (21.0-31.0) 06/01/18 04:40 Anion Gap 13.8 (7.0-16.0) 06/01/18 04:40 BUN 19 mg/dL (7-25) 06/01/18 04:40 Creatinine 1.8 mg/dL (0.7-1.3) H 06/01/18 04:40 Est GFR ( Amer) 48.9 ml/min (>90) 06/01/18 04:40 Est GFR (Non-Af Amer) 40.4 ml/min 06/01/18 04:40 BUN/Creatinine Ratio 10.6 06/01/18 04:40 Glucose 205 mg/dL (70-105) H 06/01/18 04:40 POC Glucose 381 MG/DL (70 - 105) H 06/01/18 11:28 Calcium 8.2 mg/dL (8.6-10.3) L 06/01/18 04:40 Phosphorus 3.3 mg/dL (2.5-5.0) 05/30/18 05:07 Magnesium 1.9 mg/dL (1.9-2.7) 06/01/18 04:40 Total Bilirubin 0.3 mg/dL (0.3-1.0) 05/30/18 05:07 AST 12 U/L (13-39) L 05/30/18 05:07 ALT 8 U/L (7-52) 05/30/18 05:07 Alkaline Phosphatase 130 U/L (34-104) H 05/30/18 05:07 Ammonia 36 umol/L (16-53) 05/30/18 05:07 B-Natriuretic Peptide 94.1 pg/mL (5.0-100.0) 06/01/18 04:40 Total Protein 5.8 gm/dL (6.0-8.3) L 05/30/18 05:07 Albumin 2.6 gm/dL (4.2-5.5) L 05/30/18 05:07 Globulin 3.2 gm/dL 05/30/18 05:07 Albumin/Globulin Ratio 0.8 (1.0-1.8) L 05/30/18 05:07 Amylase 79 U/L (29-103) 05/29/18 12:08 Lipase 39 U/L (11-82) 05/29/18 12:08 TSH 3.21 uIU/ml (0.34-5.60) 05/29/18 12:08 Urine Source CLEAN C 05/29/18 13:10 Urine Color YELLOW 05/29/18 13:10 Urine Clarity HAZY (CLEAR) 05/29/18 13:10 Urine pH 6.5 (4.6 - 8.0) 05/29/18 13:10 Ur Specific [place] 1.025 (1.005-1.030) 05/29/18 13:10 Urine Protein >=300 mg/dL (NEGATIVE) 05/29/18 13:10 Urine Glucose (UA) 500 mg/dL (NEGATIVE) H 05/29/18 13:10 Urine Ketones TRACE mg/dL (NEGATIVE) 05/29/18 13:10 Urine Blood LARGE (NEGATIVE) H 05/29/18 13:10 Urine Nitrate NEGATIVE (NEGATIVE) 05/29/18 13:10 Urine Bilirubin NEGATIVE (NEGATIVE) 05/29/18 13:10 Urine Urobilinogen 0.2 E.U./dL (0.2 - 1.0) 05/29/18 13:10 Ur Leukocyte Esterase NEGATIVE (NEGATIVE) 05/29/18 13:10 Urine RBC 10-25 /hpf (0-5) H 05/29/18 13:10 Urine WBC 2-5 /hpf (0-5) 05/29/18 13:10 Ur Epithelial Cells FEW /lpf (FEW) 05/29/18 13:10 Urine Bacteria 1+ /hpf (NONE SEEN) H 05/29/18 13:10 Coarse Granular Casts 0-2 /lpf (NONE SEEN) H 05/29/18 13:10 Urine Opiates Screen NEGATIVE (NEGATIVE) 05/29/18 13:10 Urine Methadone Screen NEGATIVE (NEGATIVE) 05/29/18 13:10 Ur Barbiturates Screen NEGATIVE (NEGATIVE) 05/29/18 13:10 Ur Tricyclics Screen NEGATIVE (NEGATIVE) 05/29/18 13:10 Ur Phencyclidine Scrn NEGATIVE (NEGATIVE) 05/29/18 13:10 Amphetamines Screen NEGATIVE (NEGATIVE) 05/29/18 13:10 U Methamphetamines Scrn NEGATIVE (NEGATIVE) 05/29/18 13:10 U Benzodiazepines Scrn NEGATIVE (NEGATIVE) 05/29/18 13:10 U Cocaine Metab Screen NEGATIVE (NEGATIVE) 05/29/18 13:10 U Cannabinoids Screen NEGATIVE (NEGATIVE) 05/29/18 13:10 - Physical Exam Vitals and I&O: Vital Signs Temp 97.9 F 06/01/18 12:10 Pulse 74 06/01/18 13:40 Resp 18 06/01/18 12:10 BP 147/77 06/01/18 13:40 Pulse Ox 100 06/01/18 12:10 Intake & Output 05/31/18 06/01/18 06/01/18 18:59 06:59 18:59 Intake Total 2250 66 530 Balance 2250 66 530 Weight (lbs) 152 lb 156 lb 4 oz Intake: Intake, IV Amount 1050 66 50 Cefepime 1 gm In Dextrose 50 50 50 5% 50 ml @ 100 mls/hr IV Q12H [facility] Rx#:[id number] Sodium Chloride 0.9% 1, 1000 16 000 ml @ 80 mls/hr IV . [id number] [facility] Rx#:[id number] Oral 1200 480 Other: # Voids 3 2 # Bowel Movements 2 Stool Characteristics Formed Formed Weight Source Bedscale Bedscale Active Medications: Current Medications Acetaminophen (Tylenol) 650 mg PO Q4H PRN PRN Reason: TEMP >100.4 OR MILD PAIN Stop: 07/28/18 23:55 Albuterol Sulfate (Albuterol 2.5mg/3ml Neb Ud) 2.5 mg HHN Q6H PRN PRN Reason: Shortness of Breath Stop: 07/28/18 22:23 Last Admin: 05/31/18 20:36 Dose: 2.5 mg Amlodipine Besylate (Norvasc) 10 mg PO DAILY [facility] Stop: 07/29/18 08:59 Last Admin: 06/01/18 09:04 Dose: 10 mg Ascorbic Acid (Vitamin C) 500 mg PO DAILY [facility] Stop: 07/29/18 08:59 Last Admin: 06/01/18 09:04 Dose: 500 mg Benzocaine/Menthol (Cepacol) 1 gabriella MM Q2H PRN PRN Reason: Sore Throat Stop: 07/28/18 22:23 Bisacodyl (Dulcolax 10 Mg Supp) 10 mg RC DAILY PRN PRN Reason: IF MOM INEFFECTIVE Stop: 07/28/18 22:23 Diphenhydramine HCl (Benadryl) 25 mg PO Q6H PRN PRN Reason: Itching Stop: 07/28/18 22:23 Docusate Sodium (Colace) 100 mg PO BID [facility] Stop: 07/29/18 08:59 Last Admin: 06/01/18 09:04 Dose: 100 mg Doxazosin Mesylate (Cardura) 2 mg PO HS [facility] Stop: 07/29/18 20:59 Last Admin: 05/31/18 20:53 Dose: 2 mg Glucagon (Glucagen) 1 mg IM PRN PRN PRN Reason: BS < 70 Stop: 07/29/18 05:03 Hydrocortisone (Hydrocortisone 1%) 1 appl TP BID PRN PRN Reason: Itching Stop: 07/28/18 22:23 Sodium Chloride (Nacl 0.9%) 1,000 mls @ 80 mls/hr IV .[id number] [facility] Stop: 07/28/18 22:29 Last Infusion: 06/01/18 06:16 Dose: 80 mls/hr Cefepime HCl 1 gm/ Dextrose 50 mls @ 100 mls/hr IV Q12H [facility] Stop: 07/30/18 11:44 Last Infusion: 06/01/18 11:59 Dose: Infused Insulin Aspart (Novolog) 0 units SUBQ ACHS [facility]; Protocol Stop: 07/28/18 23:07 Last Admin: 06/01/18 11:40 Dose: 8 units Ipratropium [place] (Atrovent Neb 0.5mg/2.5ml) 0.5 mg HHN Q6HRT PRN PRN Reason: SOB/WHEEZING Stop: 07/28/18 22:23 Lactobacillus Rhamnosus (Culturelle 15b) 1 each PO DAILY [facility] Stop: 07/31/18 13:59 Last Admin: 06/01/18 13:41 Dose: 1 each Magnesium Hydroxide (Milk Of Magnesia) 30 ml PO DAILY PRN PRN Reason: IF NO BM IN TWO DAYS Stop: 07/28/18 22:23 Metoprolol Tartrate (Lopressor) 12.5 mg PO TID [facility] Stop: 07/29/18 08:59 Last Admin: 06/01/18 13:40 Dose: 12.5 mg Miscellaneous (Probiotic Screen) 1 ea MC PRN PRN PRN Reason: PROTOCOL Stop: 07/31/18 10:23 Multivitamins/Vitamin C (Theragran) 1 tab PO DAILY [facility] Stop: 07/29/18 08:59 Last Admin: 06/01/18 09:05 Dose: 1 tab Ondansetron HCl (Zofran) 4 mg IV Q8H PRN PRN Reason: Nausea / Vomiting Stop: 07/28/18 22:29 Pantoprazole Sodium (Protonix) 40 mg PO QDAC [facility] Stop: 07/29/18 07:29 Last Admin: 06/01/18 09:06 Dose: Not Given Quetiapine Fumarate (Seroquel) 25 mg PO HS [facility]; Protocol Stop: 07/29/18 20:59 Last Admin: 05/31/18 20:53 Dose: 25 mg Sodium Phosphate (Fleet Enema) 135 ml RC DAILY PRN PRN Reason: IF MOM/DULCOLAX INEFFECTIVE Stop: 07/28/18 22:23 Zinc Sulfate (Zinc Sulfate) 220 mg PO DAILY [facility] Stop: 07/29/18 08:59 Last Admin: 06/01/18 09:05 Dose: 220 mg General: alert HEENT: NC/AT, PERRLA, EOMI, poor dentition Neck: Supple, No JVD, No thyromegaly Lungs: CTAB Cardiovascular: RRR, Normal S1, Normal S2, without murmur Abdomen: soft, non-tender, globular, positive bowel sound Extremities: excoriation Neurological: no change, muscle weakness Internal Medicine Assmt/Plan - Assessment Assessment: ASSESSMENT AND PLAN: Increasing agitation, cholangiocarcinoma, sepsis/bacteremia with questionable endocarditis, status post Whipple procedure, diabetes, hypokalemia, hypomagnesemia, coronary artery disease, protein-calorie malnutrition. - Plan Plan: dc planning in progress fall precautions follow up labs in am continue current plan of care Nutritional Asmnt/Malnutr-PDOC - Dietary Evaluation Malnutrition Findings (Please click <Entered> for more info): Nutritional Asmnt/Malnutrition Start: 05/30/18 14: 17 Text: Status: Complete Freq: Protocol: Document 05/30/18 14:17 DAVID (Rec: 05/30/18 14:31 MMMICHAEL MICHELLE- [email or web address]) Nutritional Asmnt/Malnutrition Patient General Information Nutritional Screening High Risk Diagnosis Increased agitation and mets Ca Pertinent Medical Hx/Surgical Hx renal complications, neuropathy, gait/mobility abnormality, muscle weakness, cholangiocarcinoma, bacteremia Subjective Information Patient with 1:1 sitter for 5150 status. Current Diet Order/ Nutrition Support 60 gm [facility] Patient / S.O Not Indicated Pertinent Medications Vitamin C, Dulcolax, Colace, glucagon, Novolog, MOM, Theragran, Zofran, protonix, Miralax, senna, fleet enema, zinc sulfate Pertinent Labs (05/30) K 3.4, Mg 1.8, Albumin 2.6, glucose 194-355 Nutritional Hx/Data Height 5 ft 7 in Height (Calculated Centimeters) 170.2 Current Weight (lbs) 152 lb Weight (Calculated Kilograms) 68.9 Weight (Calculated Grams) 91330.0 [place] Body Weight 148 % [place] Body Weight 102 Body Mass Index (BMI) 23.8 Recent Weight Change No Weight Status Approriate GI Symptoms GI Symptoms None Last BM none noted in EMR Difficult in: None Food Allergies No Cultural/Ethnic/Advent Belief none indicated Usual diet at home Regular Skin Integrity/Comment: Rogerio 18, 1+ non-pitting edema, reddened right toe, ulceration right foot, scar right ankle, pressure area sacrum, incision abdomen Estimated Nutritional Goals BEE in Kcals: Using Current wt Calories/Kcals/Kg 30-35 kcal/kg using CBW 69kg - mets cancer, osteomyelitis Kcals Calculated ~2783-4954 kcal/day Protein: Using Current wt Protein g/k.2-1.5 gm/kg Protein Calculated ~80-100 gm/day Fluid: ml ~1504-7522 ml/day (1 ml/kcal) Nutritional Problem 2. Problem Problem Increased nutrient needs related to Etiology impaired skin integrity, Hypermetabolic state aeb Signs/Symptoms: skin ulcerations (per RN notes ), osteomyelitis, mets cancer 1. Problem Problem Altered nutrition related lab values related to Etiology electrolyte imbalance, uncontrolled hyperglycemia aeb Signs/Symptoms: K 3.4, Mg 1.8, Albumin 2.6, glucose 194-355 Intervention/Recommendation Comments 1. Continue 60 gm CCHO diet as tolerated by patient. 2. MD to modify insulin regimen for optimal glycemic control. 3. Encourage oral intake and provide assistance with meals as needed. 4. Provide Glucerna with each meal to supplement calorie and protein intake. 5. F/U in 3-5 days as MR 06/02 - Expected Outcomes/Goals Expected Outcomes/Goals Oral intake >75% of meals, weight stable, nutrition related labs/glucose normalize
--- NOTE | 2018-06-01 21:00 | Progress Notes ---
DATE: SUBJECTIVE: Chart reviewed and the patient interviewed. Also discussed the patient's condition with the staff and reviewed records and labs. The patient's affect is brighter. The patient is smiling appropriately. The patient also is less depressed and he is interacting appropriately. He denies any intention to harm himself or others. He also said that he is not as depressed and although he said that sometimes the medicines make his stomach upset, but he is tolerating with no major problems. ASSESSMENT: The patient is not suicidal and less depressed. TREATMENT PLAN: Continue Seroquel 25 mg at bedtime. Also, the patient can be followed in the [facility] when medically stable. JOB# [id number]
[2018-06-02 06:08] LABS: FOLIC ACID 5.8 ng/mL (>3.0)
== END 2018-06-01 18:50 | DRG 288 ==
LOC: ER 11:46 → MSI 19:22 → TELE 23:00
PROVIDERS: ADMIT Internal Medicine; ATTEND Internal Medicine
DX: I33.0 Acute and subacute infective endocarditis (principal); E11.00 Type 2 diabetes mellitus with hyperosmolarity without nonketotic hyperglycemic-hyperosmolar coma (NKHHC); C22.1 Intrahepatic bile duct carcinoma; E44.0 Moderate protein-calorie malnutrition; Z68.24 Body mass index [BMI] 24.0-24.9, adult; R45.1 Restlessness and agitation; E87.6 Hypokalemia; Z85.07 Personal history of malignant neoplasm of pancreas; R31.9 Hematuria, unspecified; D64.9 Anemia, unspecified; I10 Essential (primary) hypertension; K21.9 Gastro-esophageal reflux disease without esophagitis; Z79.4 Long term (current) use of insulin; E83.42 Hypomagnesemia; I25.10 Atherosclerotic heart disease of native coronary artery without angina pectoris
CPT/HCPCS: 36415-UA; 70450-TC; 80048-TC; 80053-TC; 80307; 81001-TC; 82140-TC; 82150-TC; 82607-90; 82746-90; 82948-90; 83036-90; 83690-TC; 83735-TC; 83880-TC; 84100-TC; 84443-TC; 85025-TC; 85610-TC; 85652-TC; 90799; 94760; J0692; J1815; J2543; J3475; J7030; J7613; Z7610